=== PATIENT | male | born 1980 ===

== ENCOUNTER 2016-07-01 20:23 | Emergency (ER) | payer SELFPAY ==
[2016-07-01 20:38] VITALS: BP 114/73; PULSE 55; RESP 20; TEMP 98.3; O2SAT 100
--- NOTE | 2016-07-01 21:19 | C.PDOC ---
History Of Present Illness 35 y/o male presents to ED with c/o rectal pain for 1 week. Patient reports no relief with OTC hemorrhoidal cream. Denies rectal bleed, fever, or any other associated symptoms. Time Seen by Provider: 07/01/16 21:00 Chief Complaint (Nursing): Medical Clearance History Per: Patient History/Exam Limitations: no limitations Onset/Duration Of Symptoms: Days Current Symptoms Are (Timing): Still Present Recent travel outside of the [place]: No Past Medical History Reviewed: Historical Data, Nursing Documentation, Vital Signs Vital Signs: Last Vital Signs Temp 98.3 F 07/01/16 20:34 Pulse 55 L 07/01/16 20:34 Resp 20 07/01/16 20:34 BP 114/73 07/01/16 20:34 Pulse Ox 100 07/01/16 22:56 - Medical History PMH: No Chronic Diseases Family History: States: Unknown Family Hx - Social History Hx Alcohol Use: No Hx Substance Use: No - Immunization History Hx Tetanus Toxoid Vaccination: No Hx Influenza Vaccination: No Hx Pneumococcal Vaccination: No Review Of Systems Except As Marked, All Systems Reviewed And Found Negative. Constitutional: Negative for: Fever, Chills Respiratory: Negative for: Shortness of Breath Gastrointestinal: Positive for: Rectal Pain. Negative for: Nausea, Vomiting, Abdominal Pain, Constipation, Hematochezia Skin: Negative for: Rash Physical Exam - Physical Exam Appears: Non-toxic, No Acute Distress Skin: Normal Color, Warm, Dry Head: Atraumatic, Normacephalic Eye(s): bilateral: Normal Inspection, PERRL, EOMI Chest: Symmetrical Cardiovascular: Rhythm Regular Respiratory: Normal Breath Sounds, No Rales, No Rhonchi, No Wheezing Gastrointestinal/Abdominal: Soft, No Tenderness, No Guarding, No Rebound Rectal: No Melena, No Blood Streaked Stool, Hemorrhoids (external), No Other ( mass ) Back: Normal Inspection Extremity: Normal ROM Neurological/Psych: Oriented x3, Normal Speech, Normal Cognition ED Course And Treatment O2 Sat by Pulse Oximetry: 100 (RA) Pulse Ox Interpretation: Normal Progress Note: Toradol given. On reassessment, patient is resting comfortably, and is in no acute distress. Patient instructed to follow up with clinic/PMD within 1-2 days. Disposition Counseled Patient/Family Regarding: Diagnosis, Need For Followup - Disposition Referrals: [facility] at [facility] [Outside] Disposition: HOME/ ROUTINE Disposition Time: 21:25 Condition: GOOD Additional Instructions: Leilani fibra en la dieta Karmen mucho ag[facility] ( Sient en agua tibia o usa kian christine tibia ) Regresa si peor Prescriptions: Hydrocortisone 2.5% (Rectal) [Anusol-HC] 30 applic NV BID #1 tube Docusate [Colace] 100 mg PO TID #60 cap Ibuprofen [Motrin] 600 mg PO Q6H #30 tab Instructions: Hemorrhoids (ED), High Fiber Diet (ED) Print Language: IRISH - Clinical Impression Clinical Impression: External hemorrhoids - PA / STEP FINISHER / Resident Statement MD/DO has reviewed & agrees with the documentation as recorded. - Scribe Statement The provider has reviewed the documentation as recorded by the Scribe Tan Muse Provider Scribe Attestation: All medical record entries made by the Scribe were at my direction and personally dictated by me. I have reviewed the chart and agree that the record accurately reflects my personal performance of the history, physical exam, medical decision making, and the department course for this patient. I have also personally directed, reviewed, and agree with the discharge instructions and disposition.
== END 2016-07-01 21:39 | disposition home or self-care (01) ==
LOC: C.ER 20:23
DX: K64.4 Residual hemorrhoidal skin tags (principal)
CPT/HCPCS: 96372; 99282; J1885